=== PATIENT | male | born 1945 | race Caucasian/White ===

== ENCOUNTER → 2020-05-30 | Outpatient (CLI) | payer MEDICARE ==
[~2020-05-30] MED LIST: AMLO-211 PO; B CO1TAB14 PO; BRIM5DRO3 EACHEYE; GABA300C PO; HYDR25TA6 PO; LATA2.5D4 EACHEYE; LISI40TA9 PO; SODI3.5O4 TD; Vitamin D3 PO; ZINC50CA PO; ZOLP10TA PO; [UNRECOGNIZED DRUG - CODE] PO
[2020-05-30 11:41] LABS: BASOPHILS % (AUTO) 1 % (0-1); EOSINOPHILS % (AUTO) 6 % (1-7); LYMPHOCYTES % (AUTO) 23 % (22-44); MEAN CORPUSCULAR HEMOGLOBIN 31.2 pg (27.5-34.5); MEAN CORPUSCULAR HGB CONC 34.2 g/dL (33.2-36.2); MEAN PLATELET VOLUME 7.2 fL (7.4-10.4); MONOCYTES % (AUTO) 9 % (2-9); NEUTROPHILS % (AUTO) 61 % (42-75); PLATELET COUNT 377 x10^3/uL (130-400); RED BLOOD COUNT 4.78 x10^6/uL (4.38-5.82); RED CELL DISTRIBUTION WIDTH 12.5 % (9.4-14.8)
[2020-05-30 11:46] LABS: ALBUMIN 4.2 g/dL (3.4-5.0); ANION GAP 7 mmol/L (5-15); CALCIUM 9.5 mg/dL (8.5-10.1); CHLORIDE 96 mmol/L (98-107)
[2020-05-30 11:47] LABS: INTERNATIONAL NORMALIZED RATIO 1.02 (0.93-1.1); PROTHROMBIN TIME 10.9 Seconds (9.6-11.5)
[2020-05-30 11:49] LABS: ALANINE AMINOTRANSFERASE 28 U/L (12-78); ALKALINE PHOSPHATASE 61 U/L (45-117); BILIRUBIN,TOTAL 0.8 mg/dL (0.2-1.0); CREATININE 0.84 mg/dL (0.7-1.3); MD NO
== END | disposition home or self-care (01) ==
LOC: STAR 09:38
PROVIDERS: ATTEND Orthopaedic Surgery
DX: Z01.810 Encounter for preprocedural cardiovascular examination (principal); Z01.818 Encounter for other preprocedural examination; M17.12 Unilateral primary osteoarthritis, left knee; M25.562 Pain in left knee; I49.3 Ventricular premature depolarization; Z96.652 Presence of left artificial knee joint; Z20.822 Contact with and (suspected) exposure to COVID-19; Z79.01 Long term (current) use of anticoagulants
CPT/HCPCS: 80053; 83036; 85025; 85610; 85730; 87081; 87147; 87635; 87806; 93005; G0475

== ENCOUNTER 2020-06-05 10:30 | Day surgery (SDC) | payer MEDICARE ==
[~2020-06-05] VITALS: Ht 177.8 cm; Wt 94.0 kg
[~2020-06-05 10:30] MED LIST changes: +EPINEPHRINE 1 MG/ML, 1ML ONE; +KETOROLAC 60 MG/2 ML ONE; +ROPIvacaine/PF 0.2%, 20 ML ONE; +SODIUM CHLORIDE 0.9% 50 ML ONE; +TRANEXAMIC ACID 100 MG/ML, 10ML ONE; +VANCOMYCIN 1,000 MG ONE
[2020-06-05] MEDS ORDERED: FENTANYL PF 250 MCG/5ML ONE ×2 (11:19→13:28)
[2020-06-05] MEDS ORDERED: BUPIVACAINE/PF 0.25% ONE (11:21)
[2020-06-05] MEDS ORDERED: GABAPENTIN 300 MG CAPSULE PO ONE (11:30)
[2020-06-05] MEDS ORDERED: LACTATED RINGERS 1,000 ML IV SCH (11:30)
[2020-06-05] MEDS ORDERED: VANCOMYCIN PER PHARMACY MC PRN (11:30)
[2020-06-05] MEDS ORDERED: ACETAMINOPHEN 500 MG TABLET PO ONE (11:30)
[2020-06-05] MEDS ORDERED: CHLORHEXIDINE 15 ML UDC MM ONE (11:30)
[2020-06-05] MEDS ORDERED: PROPOFOL 10 MG/ML, 20ML ONE (11:55)
[2020-06-05] MEDS ORDERED: GLYCOPYRROLATE 0.2MG/1ML, 5ML ONE (11:55)
[2020-06-05] MEDS ORDERED: CEFAZOLIN 1,000 MG ONE (11:55)
[2020-06-05] MEDS ORDERED: NEOSTIGMINE 1 MG/ML, 10ML ONE (11:55)
[2020-06-05] MEDS ORDERED: ROCURONIUM 10MG/ML,5ML ONE (11:55)
[2020-06-05] MEDS ORDERED: VANCOMYCIN IV ONE (12:00)
[2020-06-05] MEDS ORDERED: SODIUM CHLORIDE 0.9% IV ONE (12:00)
[2020-06-05] MEDS ORDERED: HYDROmorphone 1 MG/ML, 1ML INJ IVPush PRN ×2 (13:00→15:00)
[2020-06-05] MEDS ORDERED: ACETAMINOPHEN 325 MG TABLET PO PRN (13:00)
[2020-06-05] MEDS ORDERED: hydrALAzine 20 MG/ML, 1ML IV PRN (13:00)
[2020-06-05] MEDS ORDERED: OXYcodone 5 MG/5 ML ORAL.SOL UDC PO PRN (13:00)
[2020-06-05] MEDS ORDERED: morphine SULFATE 10 MG/ML, 1ML IVPush PRN (13:00)
[2020-06-05] MEDS ORDERED: LABETALOL 5MG/ML, 20ML IV PRN (13:00)
[2020-06-05] MEDS ORDERED: ONDANSETRON 2MG/ML, 2ML IVPush PRN ×2 (13:00→15:00)
[2020-06-05] MEDS ORDERED: MEPERIDINE/PF 25MG/0.5ML IVPush PRN (13:00)
[2020-06-05] MEDS ORDERED: FENTANYL PF 100 MCG/2ML IV PRN (13:00)
[2020-06-05] MEDS ORDERED: MEPERIDINE/PF 25MG/ML,1ML ONE (14:50)
[2020-06-05] MEDS ORDERED: KETOROLAC 30 MG/1 ML IV SCH (15:00)
[2020-06-05] MEDS ORDERED: PROMETHAZINE 12.5 MG SUPP PR PRN (15:00)
[2020-06-05] MEDS ORDERED: TRANEXAMIC ACID 1,000 MG in SODIUM CHLORIDE 0.9% 100 ML IVPB ONE (15:00)
[2020-06-05] MEDS ORDERED: ACETAMINOPHEN 650 MG/20.3 ML UDC PO PRN (15:00)
[2020-06-05] MEDS ORDERED: MAGNESIUM HYDROXIDE 8%, 30ML UDC PO PRN (15:00)
[2020-06-05] MEDS ORDERED: PSYLLIUM PACKET PO PRN (15:00)
[2020-06-05] MEDS ORDERED: DEXAMETHASONE 4 MG/ML, 1ML IVPush ONE (15:00)
[2020-06-05] MEDS ORDERED: ONDANSETRON 4 MG TABLET PO PRN (15:00)
[2020-06-05] MEDS ORDERED: SENNA/DOCUSATE TABLET PO PRN (15:00)
[2020-06-05] MEDS ORDERED: METOCLOPRAMIDE 5 MG/ML, 2ML IVPush PRN (15:00)
[2020-06-05] MEDS ORDERED: OXYcodone IR 5MG TABLET PO PRN (15:00)
[2020-06-05] MEDS ORDERED: POTASSIUM CHLORIDE 20 MEQ in D5%-0.45% NACL 1,000 ML IV SCH (15:00)
[2020-06-05] MEDS ORDERED: POLYETHYLENE GLYCOL 17 GM PACKET PO PRN (15:00)
[2020-06-05] MEDS ORDERED: DIPHENHYDRAMINE 50 MG CAPSULE PO PRN (15:00)
[2020-06-05] MEDS ORDERED: DIPHENHYDRAMINE 50 MG/ML, 1ML IVPush PRN (15:00)
[2020-06-05] MEDS ORDERED: LABETALOL 5MG/ML, 20ML ONE (15:26)
[2020-06-05] MEDS ORDERED: CEFAZOLIN PMX 1GM/50ML 50 ML IVPB SCH (20:36)
[2020-06-05] MEDS ORDERED: ASPIRIN 81 MG TABLET EC PO SCH (21:00)
[2020-06-05] MEDS ORDERED: DOCUSATE 100 MG CAPSULE PO SCH (21:00)
[2020-06-05] MEDS ORDERED: VANCOMYCIN PMX 1GM/200ML 200 ML IVPB ONE (23:15)
[2020-06-06] MEDS ORDERED: TAMSULOSIN 0.4 MG CAP.ER.24H PO SCH (09:00)
== END 2020-06-05 18:08 | disposition home or self-care (01) ==
LOC: OUT 10:30 → UNDOADMIN 14:48 → ORIP 14:48
PROVIDERS: ATTEND Orthopaedic Surgery
DX: T84.093A Other mechanical complication of internal left knee prosthesis, initial encounter (principal); M25.562 Pain in left knee; E11.9 Type 2 diabetes mellitus without complications; I10 Essential (primary) hypertension; E78.2 Mixed hyperlipidemia; G47.00 Insomnia, unspecified; M19.90 Unspecified osteoarthritis, unspecified site; Y83.8 Other surgical procedures as the cause of abnormal reaction of the patient, or of later complication, without mention of misadventure at the time of the procedure; Z88.8 Allergy status to other drugs, medicaments and biological substances; Z79.899 Other long term (current) drug therapy; Z87.891 Personal history of nicotine dependence; Z98.890 Other specified postprocedural states
CPT/HCPCS: 27487; 64447; 73560; 82962; 97162; C1713; C1776; J0171; J0690; J1885; J2175; J2704; J2710; J2795; J3010; J3370; J7050; J7120

== ENCOUNTER → 2020-10-20 | Outpatient (CLI) | payer MEDICARE ==
[~2020-10-20] MED LIST changes: +CHOL10003 PO; -EPINEPHRINE 1 MG/ML, 1ML ONE; -KETOROLAC 60 MG/2 ML ONE; -ROPIvacaine/PF 0.2%, 20 ML ONE; -SODIUM CHLORIDE 0.9% 50 ML ONE; -TRANEXAMIC ACID 100 MG/ML, 10ML ONE; -VANCOMYCIN 1,000 MG ONE
[2020-10-20 10:11] LABS: ALANINE AMINOTRANSFERASE 24 U/L (12-78); ALBUMIN 3.7 g/dL (3.4-5.0); ANION GAP 7 mmol/L (5-15); CALCIUM 9.1 mg/dL (8.5-10.1); CHLORIDE 97 mmol/L (98-107); CREATININE 0.79 mg/dL (0.7-1.3)
[2020-10-20 10:13] LABS: ALKALINE PHOSPHATASE 69 U/L (45-117); BILIRUBIN,TOTAL 0.6 mg/dL (0.2-1.0); TOTAL PROTEIN 7.2 g/dL (6.4-8.2)
== END | disposition home or self-care (01) ==
LOC: STAR 08:55
PROVIDERS: ATTEND Surgery
DX: Z01.812 Encounter for preprocedural laboratory examination (principal); K40.91 Unilateral inguinal hernia, without obstruction or gangrene, recurrent; I49.1 Atrial premature depolarization; R94.31 Abnormal electrocardiogram [ECG] [EKG]; Z20.822 Contact with and (suspected) exposure to COVID-19
CPT/HCPCS: 36415; 80053; 93005; U0003; U0005

== ENCOUNTER 2020-10-26 07:54 | Day surgery (SDC) | payer MEDICARE ==
[~2020-10-26] VITALS: Ht 177.8 cm; Wt 86.3 kg
[~2020-10-26 07:54] MED LIST changes: +BUPIVACAINE/PF 0.5% ONE; +EPINEPHRINE 1 MG/ML, 1ML ONE
[2020-10-26 08:23] VITALS: BP 147/83
[2020-10-26] MEDS ORDERED: aspirin PO (08:28)
[2020-10-26] MEDS ORDERED: LACTATED RINGERS 1,000 ML IV SCH (08:30)
[2020-10-26] MEDS ORDERED: CHLORHEXIDINE 15 ML UDC PO ONE (08:30)
[2020-10-26] MEDS ORDERED: CHLORHEXIDINE 15 ML UDC ONE (08:31)
[2020-10-26] MEDS ORDERED: PLEASE ENTER ALLERGIES MC SCH (09:30)
[2020-10-26] MEDS ORDERED: FENTANYL PF 100 MCG/2ML ONE (09:35)
[2020-10-26] MEDS ORDERED: ONDANSETRON 2MG/ML, 2ML ONE (10:34)
[2020-10-26] MEDS ORDERED: NEOSTIGMINE 1 MG/ML, 10ML ONE (10:34)
[2020-10-26] MEDS ORDERED: ROCURONIUM 10MG/ML,5ML ONE (10:34)
[2020-10-26] MEDS ORDERED: PROPOFOL 10 MG/ML, 20ML ONE (10:34)
[2020-10-26] MEDS ORDERED: SUCCINYLCHOLINE 20 MG/ML, 10ML ONE (10:34)
[2020-10-26] MEDS ORDERED: CEFAZOLIN 1,000 MG ONE (10:34)
[2020-10-26] MEDS ORDERED: GLYCOPYRROLATE 0.2MG/1ML, 5ML ONE (10:34)
[2020-10-26] MEDS ORDERED: ONDA4TAB7 PO (10:56)
[2020-10-26] MEDS ORDERED: HYDROmorphone 2 MG/ML, 1ML IVPush PRN (11:00)
[2020-10-26] MEDS ORDERED: FENTANYL PF 100 MCG/2ML IV PRN (11:00)
[2020-10-26] MEDS ORDERED: KETOROLAC 30 MG/1 ML IV PRN (11:00)
[2020-10-26] MEDS ORDERED: ALBUTEROL SULFATE 2.5 MG/3 ML NPPB PRN (11:00)
[2020-10-26] MEDS ORDERED: LABETALOL 5MG/ML, 20ML IV PRN (11:00)
[2020-10-26] MEDS ORDERED: ACETAMINOPHEN 325 MG TABLET PO PRN (11:00)
[2020-10-26] MEDS ORDERED: hydrALAzine 20 MG/ML, 1ML IV PRN (11:00)
[2020-10-26] MEDS ORDERED: MEPERIDINE/PF 25MG/0.5ML IVPush PRN (11:00)
[2020-10-26] MEDS ORDERED: DIAZEPAM 5 MG/ML, 2ML IVPush PRN (11:00)
[2020-10-26] MEDS ORDERED: PROMETHAZINE 25 MG/ML, 1ML IV PRN (11:00)
[2020-10-26] MEDS ORDERED: OXYcodone 5 MG/5 ML ORAL.SOL UDC PO PRN (11:00)
[2020-10-26] MEDS ORDERED: ACETAMINOPHEN 650 MG/20.3 ML UDC ONE (11:11)
[2020-10-26] MEDS ORDERED: OXYcodone 5 MG/5 ML ORAL.SOL UDC ONE (11:12)
== END 2020-10-26 12:40 | disposition home or self-care (01) ==
LOC: OUT 07:54
PROVIDERS: ATTEND Surgery
DX: K40.91 Unilateral inguinal hernia, without obstruction or gangrene, recurrent (principal); E11.9 Type 2 diabetes mellitus without complications; I10 Essential (primary) hypertension; Z79.82 Long term (current) use of aspirin; Z79.899 Other long term (current) drug therapy; Z87.891 Personal history of nicotine dependence; Z80.1 Family history of malignant neoplasm of trachea, bronchus and lung
CPT/HCPCS: 49520; 82962; J0171; J0330; J0690; J2405; J2704; J2710; J3010; J7120